=== PATIENT | male | born 1945 | race Caucasian/White ===

== ENCOUNTER 2018-09-22 14:20 | Inpatient (IN) | payer MEDICARE ==
[~2018-09-22] VITALS: Ht 177.8 cm; Wt 70.1 kg
--- NOTE | ~2018-09-22 | MORECARE ---
CASE MANAGEMENT DISCHARGE SUMMARY PATIENT: CHUCK TORREZ UNIT: [id number] ADM DATE: 09/22/18 AGE: 73 : 43 SEX: M ROOM/BED: D[facility] AUTHOR: DARRIUS,DOC PHYSICIAN: REFERRING PHYSICIAN: DEVON FRAZIER MD DATE OF SERVICE: 10/01/18 Discharge Plan Patient Name: CHUCK TORREZ Facility: [facility]:[place] : 1945 Planned Disposition: Home with Hospice Anticipated Discharge Date: 10/01/18 Discharge Date: 10/01/2018 Expected LOS: 9 Initial Reviewer: [email or web address] Initial Review Date: 09/28/2018 Generated: 10/01/18 4:50 pm Comments DCP- Discharge Planning Updated by [email or web address]: Adilene Terrell on 10/01/18 2:[address] HOSPICE CONSULT COMPLETED. PATIENT ACCEPTED TO [facility] INPATIENT UNIT AT [facility].CM SPOKE WITH MANUEL SABILLON, PRIMARY NURSE. NECESSARY PAPERWORK REPORTED HAS BEEN COMPLETED. AMBULANCE TRANSPORTATION HAS BEEN ARRANGED, DISCHARGED TODAY. DCP- Discharge Planning Updated by [email or web address]: Daniela Campbell on 09/30/18 8:[address] CM spoke with patient and sister Barbara Torres this am. CM spoke with about hospice care and [facility] was chosen as a hospice provider. CM gave Barbara information pamphlet on [facility]. CM called and spoke to Sandi at [facility] in [place] and faxed over records as requested. [facility] will come to speak to family later today. CM will continue to follow and assist as needed with discharge planning / needs. DCP- Discharge Planning Updated by [email or web address]: Daniela Campbell on 09/29/18 7:[address] LATE ENTRY 09/28/18 @ 1100 Patient Name: CHUCK TORREZ Admission Status: Elective Accout number: [id number] Admission Date: 09-22-2018 : 1945 Admission Diagnosis:UNSPECIFIED JAUNDICE Attending: DEVON FRAZIER Current LOS: 7 Anticipated DC Date: Planned Disposition: Home with Hospice Primary Insurance: MEDICARE A & B Discharge Planning Comments: CM met with patient at bedside after obtaining verbal consent. Patient states he plans on returning to his sister's home after discharge with hospice. Awaiting for biliary stent placement then will be going home. Awaiting on other family members to arrive before making final decision about hospice. CM will continue to follow and assist as needed for discharge planning / needs. Test Lead: Daniela Campbell DCPIA - Discharge Planning Initial Assessment Updated by [email or web address]: Daniela Campbell on 09/29/18 8:13 pm * Is the patient Alert and Oriented? Yes * How many steps to enter\exit or inside your home? * PCP FREDDIE * Pharmacy [facility] [address] * Preadmission Environment Home Alone * ADLs Independent * Equipment None * List name and contact numbers for known caregivers / representatives who currently or will assist patient after discharge: BARBARA TORRES - - [phone] * Verbal permission to speak to the caregivers and representatives has been obtained from the patient. Yes * Community resources currently utilized None * Additional services required to return to the preadmission environment? No * Can the patient safely return to the preadmission environment? Yes * Has this patient been hospitalized within the prior 30 days at any hospital? No Last DP export: 09/30/18 9:00 a Patient Name: CHUCK TORREZ Page 07213 at 1550 All edits/amendments must be made on the electronic document DICTATION DATE: 10/01/18 1549 AUDIO VISUAL DIRECTOR: HAYLEY 10/01/18 1549 RPT#: [id number] DC DATE:10/01/18 STATUS: DIS IN [facility] [address] [place] [address] END OF REPORT
--- NOTE | ~2018-09-22 | HEMODYNAMI ---
PATIENT:CHUCK TORREZ MEDICAL RECORD: [id number] : [birth year] LOCATION:[place] [address] ADMISSION DATE: 09/22/18 Generatedon:09/28/201815:55 Patient name: CHUCK TORREZ Patient #: [id number] SSN: DO B: 1945 Date of study: 09/28/2018 Page: Of Hemodynamic Procedure Report Patient Data Patient Demographics Procedure consent was obtained First Name: CHUCK Gender: Male Last Name: LORE : 1945 Middle Initial: J Age: 73 year(s) Patient #: [id number] Race: Unknown Additional ID: [id number] Contact details Address: [address] [place] [address] State: [place] City: [place] Zip code: [address] Admission Admission Data Admission Date: 09/22/2018 Admission Time: 14:24 Room #: [facility] Height (in.): 70 BSA: 1.92 (m2) Height (cm.): 177.8 BMI: 23.67 (kg/m2) Weight (lbs.): 165 Weight (kg.): 74.84 Procedure Procedure Types Cath Procedure Peripheral Cath Diagnostic Procedure [place] Peripheral Procedures Procedure Description Procedure Date Procedure Date: 09/28/2018 Procedure Start Time: 15:44 Procedure Staff Name Function Joe Jung MD Performing Physician Francie Anna RT Car Inspector Cesia Romo RN Nurse Elvia Griffith RN Nurse Alfonzo Langston RT Scrub Procedure Data Cath Procedure Fluoroscopy Diagnostic fluoroscopy Total fluoroscopy Time: 4.3 time: 4.3 min min Diagnostic fluoroscopy Total fluoroscopy dose: 110 dose: 110 mGy mGy Contrast Material Contrast Material Type Amount (ml) Isovue 300 30 Hemodynamics Rest BSA: 1.92 (m2) O2 Consumption: Estimated: 245.49 (ml/min) O2 Consumption indexed : Estimated:127.86 (ml/min/m) Heart Rate: 104 (bpm) Snapshots Pre Cath Intra NCS Post Cath Vital Signs Time Heart Resp SPO2 etCO2 NIBP (mmHg) Rhythm Pain Sedation Rate (ipm) (%) (mmHg) Status Level (bpm) 15:29:14 100 9 0 Measuring NSR 0 (11) 10(A) , No pain 15:30:32 151 12 79 0 Time NSR 0 (11) 10(A) Exceeded , No pain 15:35:31 101 10 80 0 Measuring NSR 0 (11) 10(A) , No pain 15:36:16 101 12 99 0 No Cuff NSR 0 (11) 10(A) , No pain 15:36:37 102 15 96 0 Aborted NSR 0 (11) 10(A) , No pain 15:38:27 99 11 95 0 140/83(120) NSR 0 (11) 10(A) , No pain 15:42:45 100 12 96 0 134/84(109) NSR 0 (11) 10(A) , No pain 15:47:01 100 10 96 0 149/88(115) NSR 0 (11) 10(A) , No pain 15:51:21 97 9 97 0 146/87(120) NSR 0 (11) 10(A) , No pain Procedure Log Time Note 15:04:05 Patient Weight : 165 lbs 15:04:05 Patient Height : 70 inches 15:04:22 Use device set IR Diagnostic 15:20:15 Tegaderm 4 x 4 (1626W) opened to sterile field. 15:20:16 Sterile Angiographic Pack opened to sterile field. 15:20:17 Bag Decanter (2002S) opened to sterile field. 15:21:46 Time tracking: Regular hours (M-F 7:00 - 5:00) 15:22:04 Plan of Care:Hemodynamics will remain stable., Cardiac rhythm will remain stable., Comfort level will be maintained., Respiratory function will remain adequate., Patient/ family verbilizes understanding of procedure., Procedure tolerated without complication., Recovers from procedure without complications.. 15:22:18 Patient received from CVICU to IR Alert and oriented. Tansferred to table in Supine position. 15:22:23 Signed procedure consent form obtained from patient. 15:22:29 H&P Date Dictated: 09/28/2018 Within 30 days and on chart.. 15:22:32 - 15::36 Family in patients room. 15::42 Patient NPO since Midnight. 15::25 ECG and BP/O2 sat monitors applied to patient. :: Vital chart was started :: Baseline sample Acquired. ::33 Full Disclosure recording started ::34 - 15::43 Patient diabetic? No. 15:27:44 ----Pre-sedation anethsthesia assessment.---- 15::48 Previous problem with sedation/anesthesia? No ? 15:27:51 Snore? Yes 15:27:53 Sleep apnea? Yes 15:28:00 Deviated septum? No 15:28:03 Opens mouth fully? Yes 15:28:18 Sticks out tongue? Yes 15:28:21 Airway obstruction? No ? 15:28:25 Dentures? No ? 15:28:35 IV patent on arrival in right IJ with D5/.45%NaCl at O. 15:28:46 Left chest area was prepped with chlora-prep and draped in sterile fashion 15:31:40 Baseline sample Acquired. 15:32:14 Physician arrived 15:33:01 --------ALL STOP TIME OUT------ 15:33:03 Final Timeout: patient, procedure, and site verified with staff and physician. All members of the team are in agreement. 15:34:37 Procedure started. 15:41:00 GLIDE WIRE ANGLE 180cm ([id number]) opened to sterile field. 15:41:07 GLIDE WIRE Angled Super Stiff 180cm ([id number]) opened to sterile field. 15:41:48 STOPCOCK 3-Way Large Bore ([id number]) opened to sterile field. 15:42:06 BAG, DRAINAGE EMPTY 600ML W/JENNIFFER (UFP415) opened to sterile field. 15:42:30 TORQUE DEVICE PLASTIC .038 ( TD01) opened to sterile field. 15:51:53 existing tube manipulated for better drainage 15:52:03 Procedure ended.(Physican Out) 15:52:22 Fluoroscopy time 04.30 minutes. 15:52:32 Flurop Dose total: 110 15:52:32 Fluoroscopy dose: 110 mGy 15:52:52 Contrast amount:Isovue 300 30ml. 15:52:54 Procedure and supply charges have been captured, reviewed, submitted an d are correct. 15:55:25 Report given to CVICU. 15:55:45 Vital chart was stopped Device Usage Item Name Manufacture Quantity Catalog Hospital Part Current Minimal Lot# / Number Charge Number Stock Stock Serial# Code GLIDE WIRE Terumo 1 [id number] 177844 [id number] 5 ANGLE 180cm ([id number]) GLIDE WIRE Terumo 1 [id number] 631567 159257 5 Angled Super Stiff 180cm (SX9384) [facility] Medical 1 [id number] 571574 4358 152661 5 [id number] 3-Way Large Bore (Q46225) BAG, Merit 1 [id number] 016284 689194 914341 5 DRAINAGE Medical EMPTY 600ML W/JENNIFFER (NCV989) TORQUE [place] 1 TD01 873989 115143 824728 5 DEVICE Scientific PLASTIC .038 ( TD01) Tegaderm 4 x 3M 1 1626W 180783 900959 118105 5 4 (1626W) Sterile Cardinal 1 [id number] 842286 940669 5 Angiographic Health Pack Bag Decanter Microtek 1 2001S 981979 54987 036305 5 (2001S) Medical Inc. Signature Audit [place] Stage Time Signature Unsigned Intra-Procedure 09/28/2018 Francie Anna 3:55:42 PM RT(R) [facility] [address] [place] [address]
--- NOTE | ~2018-09-22 | HEMODYNAMI ---
PATIENT:CHUCK TORREZ MEDICAL RECORD: [id number] : 43 LOCATION:[place] [address] ADMISSION DATE: 09/22/18 Generatedon:09/24/201815:04 Patient name: CHUCK TORREZ Patient #: [id number] SSN: DO B: 1945 Date of study: 09/24/2018 Page: Of Hemodynamic Procedure Report Patient Data Patient Demographics Procedure consent was obtained First Name: CHUCK Gender: Male Last Name: LORE : 1945 Middle Initial: J Age: 73 year(s) Patient #: [id number] Race: Unknown Additional ID: [id number] Contact details Address: [address] [place] [address] State: [place] City: [place] Zip code: [address] Admission Admission Data Admission Date: 09/22/2018 Admission Time: 14:24 Room #: [facility] Height (in.): 70 BSA: 1.92 (m2) Height (cm.): 177.8 BMI: 23.67 (kg/m2) Weight (lbs.): 165 Weight (kg.): 74.84 Procedure Procedure Types Cath Procedure Peripheral Cath Diagnostic Procedure Stock Broker Peripheral Procedures Procedure Description Procedure Date Procedure Date: 09/24/2018 Procedure Start Time: 14:14 Procedure Staff Name Function Cruz Winters MD Performing Physician Francie Anna RT Security Incident Response Specialist Cesia Romo RN Nurse Mercedes Graves Scrub Procedure Data Cath Procedure Fluoroscopy Diagnostic fluoroscopy Total fluoroscopy Time: 7.1 time: 7.1 min min Diagnostic fluoroscopy Total fluoroscopy dose: 143 dose: 143 mGy mGy Contrast Material Contrast Material Type Amount (ml) Isovue 300 15 Diagnostic catheters Device Type Used For End Catheter Placement Merit Impress KA 2 5Fr 40CM catheter ([id number]) Procedure Medications Medication Administration Route Dosage Heparin Flush Bag added to field 1 bags (1000units/500ml NS) Lidocaine 1% added to field 20 Versed I.V. 2 mg Fentanyl I.V. 100 mcg Fentanyl I.V. 100 mcg Hemodynamics Rest BSA: 1.92 (m2) O2 Consumption: Estimated: 228.82 (ml/min) O2 Consumption indexed : Estimated:119.18 (ml/min/m) Heart Rate: 81 (bpm) Snapshots Pre Cath Intra NCS Post Cath Vital Signs Time Heart Resp SPO2 etCO2 NIBP (mmHg) Rhythm Pain Sedation Rate (ipm) (%) (mmHg) Status Level (bpm) 14:03:26 98 15 0 173/79(125) NSR 0 (11) 10(A) , No pain 14:07:48 100 11 100 0 157/78(100) NSR 0 (11) 10(A) , No pain 14:12:05 91 15 100 0 152/70(92) NSR 0 (11) 10(A) , No pain 14:16:25 98 15 100 0 159/78(97) NSR 0 (11) 10(A) , No pain 14:20:45 95 23 0 138/68(81) NSR 0 (11) 10(A) , No pain 14:24:59 95 0 113/59(75) NSR 0 (11) 10(A) , No pain 14:29:09 93 16 98 0 121/61(82) NSR 0 (11) 10(A) , No pain 14:33:23 95 16 95 0 131/62(86) NSR 0 (11) 10(A) , No pain 14:37:39 90 15 99 0 130/66(86) NSR 0 (11) 10(A) , No pain 14:41:50 89 16 100 0 137/69(93) NSR 0 (11) 10(A) , No pain 14:46:08 90 16 100 0 149/67(91) NSR 0 (11) 10(A) , No pain 14:50:23 91 21 100 0 128/66(84) NSR 0 (11) 10(A) , No pain 14:54:34 91 55 100 0 128/68(85) NSR 0 (11) 10(A) , No pain 14:58:46 87 16 100 0 133/67(86) NSR 0 (11) 10(A) , No pain Medications Time Medication Route Dose Verified Delivered Reason Notes Effec tiveness by by 14:03:39 Heparin Flush added 1 Cruz Cruz used for Bag to bags Singh Winters procedure (1000units/500ml field MD TIM NS) 14:03:49 Lidocaine 1% added 20ml Cruz Arroyo used for to vial Singh Winters procedure field MD TIM 14:20:42 Fentanyl I.V. 100 Cruz [facility] Singh Romo RN sedation 14:24:41 Versed I.V. 2 mg Cruz Callaway for Singh Romo RN sedation 14:45:10 Fentanyl I.V. 100 Cruz [facility] Singh Romo RN sedation Procedure Log Time Note 13:30:55 Patient Weight : 165 lbs 13:31:22 Patient Height : 70 inches 13:40:37 KIT, INTRODUCER ACCUSTICK II W/C ([id number]) opened to sterile field. 13:40:38 CHIBA 20 X 15 needle opened to sterile field. 13:40:43 Use device set IR Diagnostic 13:40:47 Sterile Angiographic Pack opened to sterile field. 13:40:48 Bag Decanter (2002S) opened to sterile field. 13:41:37 - 13:50:53 Time tracking: Call back (After hours or weekends) 13:51:01 Plan of Care:Hemodynamics will remain stable., Cardiac rhythm will remain stable., Comfort level will be maintained., Respiratory function will remain adequate., Patient/ family verbilizes understanding of procedure., Procedure tolerated without complication., Recovers from procedure without complications.. 13:51:10 Patient received from CVICU to IR On ventilator. Tansferred to table in Supine position. 13:51:31 Signed procedure consent form obtained from guardian. 14:02:11 ECG and BP/O2 sat monitors applied to patient. 14:02:12 Vital chart was started 14:02:13 Baseline sample Acquired. 14:02:16 Full Disclosure recording started 14:02:22 Family in waiting room. 14:02:25 Patient NPO since Midnight. 14:03:39 Heparin Flush Bag (1000units/500ml NS) 1 bags added to field was administered by Cruz Winters MD; used for procedure; 14:03:49 Lidocaine 1% 20ml vial added to field was administered by Cruz villalta MD; used for procedure; 14:04:01 patient received on the ventilator, unable to obtain pre anesthesia answers. 14:12:06 Physician arrived 14:12:33 --------ALL STOP TIME OUT------ 14:12:34 Final Timeout: patient, procedure, and site verified with staff and physician. All members of the team are in agreement. 14:14:26 Procedure started. 14:14:32 Local anesthetic to Abdominal area with Lidocaine 1% by Cruz Winters MD.INITIAL ACCESS ONLY 14:20:42 Fentanyl 100 mcg I.V. was administered by Cesia Romo RN; for sedation; 14:24:41 Versed 2 mg I.V. was administered by Cesia Romo RN; for sedation; 14:26:31 NITINOL .018 80cm wire ([id number]) opened to sterile field. 14:37:15 PT ON VENT AND PROPOFOL GGT 14:42:27 ROADRUNNER .035 145 glide wire (S90905) opened to sterile field. 14:42:58 Marshall 180 wire (E01270) opened to sterile field. 14:43:01 A Merit Impress KA 2 5Fr 40CM catheter (00418TH6) was advanced over the wire and used for . 14:43:02 INFLATOR BasixTOUCH (DC3789) opened to sterile field. 14:43:03 SHEATH 6FR Brite Tip 35cm (753382V) opened to sterile field. 14:44:05 Inflate balloon Inflation number: 1 A Evercross 7 x 40 x 80 ([id number]) was prepped and advanced across the Undefined1, then inflated . 14:45:10 Fentanyl 100 mcg I.V. was administered by Cesia Romo RN; for sedation; 14:47:10 STOPCOCK 3-Way Large Bore (E77155) opened to sterile field. 14:47:11 BAG, DRAINAGE EMPTY 600ML W/JENNIFFER (BFD710) opened to sterile field. 14:47:12 Cook BILIARY 10.2 FR drainage catheter (N49041) opened to sterile field . 14:47:26 DILATOR, VESSEL 10/20 opened to sterile field. 14:55:39 A 10FR BILIARY DRAIN PLACED. 14:55:54 Procedure ended.(Physican Out) 14:56:31 Fluoroscopy time 07.10 minutes. 14:56:38 Fluoroscopy dose: 143 mGy 14:56:38 Flurop Dose total: 143 14:56:56 Contrast amount:Isovue 300 15ml. 14:56:59 Procedure and supply charges have been captured, reviewed, submitted an d are correct. 15:01:53 Report given to CVICU. 15:04:02 Vital chart was stopped Intervention Summary Intervention Notes Time ActionType Lesion and Equipment Used Action# Pressure Duration Attributes 14:44:05 Inflate Undefined1 Evercross 7 x 1 0 00:00 balloon 40 x 80 ([id number]) Device Usage Item Name Manufacture Quantity Catalog Hospital Part Current Minim al Lot# / Number Charge Number Stock Stock Serial# Code KIT, [place] 1 [id number] 075496 841357 713032 5 INTRODUCER My Luv My Life My Heartbeats ACCUSTICK II W/C ([id number]) CHIBA 20 X 15 Cook Medical 1 H21438 361213 285089 5 0439346 needle Sterile Cardinal 1 [id number] 282190 930204 5 Angiographic Health Pack Bag Decanter Microtek 1 2001S 824452 42794 451279 5 (2001S) Medical Inc. NITINOL .018 Medtronic 1 [id number] 670586 615630 5 80cm wire (Y762128) ROADRUNNER Cook Medical 1 K54471 188763 625580 731065 5 1232723 .035 145 glide wire (T66875) Marshall 180 wire Cook Medical 1 P46222 197306 927602 2307014 5 3169297 (C50964) Merit Impress Merit 1 [id number] 773923 758861 5 KA 2 5Fr 40CM Medical catheter (24710VK8) INFLATOR Merit 1 VP1067 830842 545177 115078 5 [employer]ix[employer]OT[employer] Inc. Medical (RV3111) SHEATH 6FR Cardinal 1 [id number] 362896 878928 278361 1 Brite Tip 35cm Health (983141V) Evercross 7 x Medtronic 1 [id number] 297741 73404 3694386 5 40 x 80 ([id number]) STOPCOCK 3-Way Cook Medical 1 R55108 764337 1797 147494 5 1176758 Large Bore (Y50291) BAG, DRAINAGE Merit 1 NAR344 853766 153733 144420 5 EMPTY 600ML Medical W/JENNIFFER (PYK182) Cook BILIARY [facility] 1 L35222 334684 835572 053566 5 8124386 10.2 FR drainage catheter (Q93784) DILATOR, [facility] 1 A43218 643635 84936 443044 5 VESSEL 09/17 Signature Audit [place] Stage Time Signature Unsigned Intra-Procedure 09/24/2018 Francie Anna 3:03:58 PM RT(R) [facility] [address] [place] [address]
--- NOTE | ~2018-09-22 | MORECARE ---
CASE MANAGEMENT DISCHARGE SUMMARY PATIENT: CHUCK TORREZ UNIT: [id number] ADM DATE: 09/22/18 AGE: 73 : 44 SEX: M [facility] AUTHOR: JOLLY RIZO PHYSICIAN: REFERRING PHYSICIAN: DEVON FRAZIER MD DATE OF SERVICE: 09/29/18 Discharge Plan Patient Name: CHUCK [facility]ORREZ [facility] [facility] 1945 Planned Disposition: Home with Hospice Anticipated Discharge Date: Discharge Date: Expected LOS: Initial Reviewer: [email or web address] Initial Review Date: 09/28/2018 Generated: 09/29/18 9:16 pm DCPIA - Discharge Planning Initial Assessment Updated by [email or web address]: Daniela Campbell on 09/29/18 8:13 pm * Is the patient Alert and Oriented? Yes * How many steps to enter\exit or inside your home? * PCP FREDDIE * Pharmacy [facility] [address] * Preadmission Environment Home Alone * ADLs Independent * Equipment None * List name and contact numbers for known caregivers / representatives who currently or will assist patient after discharge: BARBARA TORRES [facility] [phone] * Verbal permission to speak to the caregivers and representatives has been obtained from the patient. Yes * Community resources currently utilized None * Additional services required to return to the preadmission environment? No * Can the patient safely return to the preadmission environment? Yes * Has this patient been hospitalized within the prior 30 days at any hospital? No Patient Name: CHUCK TORREZ Page 66007 at 2016 All edits/amendments must be made on the electronic document DICTATION DATE: 09/29/182015 RESOURCE ENGINEER: HAYLEY 09/29/182015 RPT#: [id number] DC DATE: STATUS: ADM IN [facility] [address] [place] [address] END OF REPORT
--- NOTE | ~2018-09-22 | MORECARE ---
CASE MANAGEMENT DISCHARGE SUMMARY PATIENT: CHUCK TORREZ UNIT: [id number] ADM DATE: 09/22/18 AGE: 73 : 44 SEX: M ROOM/BED: D[facility] AUTHOR: DARRIUS,DOC PHYSICIAN: REFERRING PHYSICIAN: DEVON FRAZIER MD DATE OF SERVICE: 09/29/18 Discharge Plan Patient Name: CHUCK TORREZ Facility: [facility]:[place] : 1945 Planned Disposition: Home with Hospice Anticipated Discharge Date: Discharge Date: Expected LOS: Initial Reviewer: [email or web address] Initial Review Date: 09/28/2018 Generated: 09/29/18 9:23 pm Comments DCP- Discharge Planning Updated by [email or web address]: Daniela Campbell on 09/29/18 7:[address] LATE ENTRY 09/28/18 @ 1100 Patient Name: CHUCK TORREZ Admission Status: Elective Accout number: [id number] Admission Date: 09-22-2018 : 1945 Admission Diagnosis:UNSPECIFIED JAUNDICE Attending: DEVON FRAZIER Current LOS: 7 Anticipated DC Date: Planned Disposition: Home with Hospice Primary Insurance: MEDICARE A & B Discharge Planning Comments: CM met with patient at bedside after obtaining verbal consent. Patient states he plans on returning to his sister's home after discharge with hospice. Awaiting for biliary stent placement then will be going home. Awaiting on other family members to arrive before making final decision about hospice. CM will continue to follow and assist as needed for discharge planning / needs. Geotechnician: Daniela Campbell DCPIA - Discharge Planning Initial Assessment Updated by [email or web address]: Daniela Campbell on 09/29/18 8:13 pm * Is the patient Alert and Oriented? Yes * How many steps to enter\exit or inside your home? * PCP FREDDIE * Pharmacy [facility] [address] * Preadmission Environment Home Alone * ADLs Independent * Equipment None * List name and contact numbers for known caregivers / representatives who currently or will assist patient after discharge: BARBARA TORRES [facility] [phone] * Verbal permission to speak to the caregivers and representatives has been obtained from the patient. Yes * Community resources currently utilized None * Additional services required to return to the preadmission environment? No * Can the patient safely return to the preadmission environment? Yes * Has this patient been hospitalized within the prior 30 days at any hospital? No Last DP export: 09/29/18 7:16 p Patient Name: CHUCK TORREZ Page 38530 at 2022 All edits/amendments must be made on the electronic document DICTATION DATE: 09/29/182022 ETHNOGRAPHER: HAYLEY 09/29/182022 RPT#: [id number] DC DATE: STATUS: ADM IN [facility] [address] [place] [address] END OF REPORT
--- NOTE | ~2018-09-22 | MORECARE ---
CASE MANAGEMENT DISCHARGE SUMMARY PATIENT: CHUCK TORREZ UNIT: [id number] ADM DATE: 09/22/18 AGE: 73 : 44 SEX: M ROOM/BED: D[facility] AUTHOR: DARRIUS,DOC PHYSICIAN: REFERRING PHYSICIAN: DEVON FRAZIER MD DATE OF SERVICE: 10/04/18 Discharge Plan Patient Name: CHUCK TORREZ Facility: [facility]:[place] : 1945 Planned Disposition: Home with Hospice Anticipated Discharge Date: 10/01/18 Discharge Date: 10/01/2018 Expected LOS: 9 Initial Reviewer: [email or web address] Initial Review Date: 09/28/2018 Generated: 10/04/18 6:20 pm Comments DCP- Discharge Planning Updated by [email or web address]: Adilene Terrell on 10/01/18 3:[address] HOSPICE CONSULT COMPLETED. PATIENT ACCEPTED TO [facility] INPATIENT UNIT AT [facility].CM SPOKE WITH MANUEL SABILLON, PRIMARY NURSE. NECESSARY PAPERWORK REPORTED HAS BEEN COMPLETED. AMBULANCE TRANSPORTATION HAS BEEN ARRANGED, DISCHARGED TODAY. DCP- Discharge Planning Updated by [email or web address]: Daniela Campbell on 09/30/18 9:[address] CM spoke with patient and sister Barbara Torres this am. CM spoke with about hospice care and [facility] was chosen as a hospice provider. CM gave Barbara information pamphlet on [facility]. CM called and spoke to Sandi at [facility] in [place] and faxed over records as requested. [facility] will come to speak to family later today. CM will continue to follow and assist as needed with discharge planning / needs. DCP- Discharge Planning Updated by [email or web address]: Daniela Campbell on 09/29/18 8:[address] LATE ENTRY 09/28/18 @ 1100 Patient Name: CHUCK TORREZ Admission Status: Elective Accout number: [id number] Admission Date: 09-22-2018 : 1945 Admission Diagnosis:UNSPECIFIED JAUNDICE Attending: DEVON FRAZIER Current LOS: 7 Anticipated DC Date: Planned Disposition: Home with Hospice Primary Insurance: MEDICARE A & B Discharge Planning Comments: CM met with patient at bedside after obtaining verbal consent. Patient states he plans on returning to his sister's home after discharge with hospice. Awaiting for biliary stent placement then will be going home. Awaiting on other family members to arrive before making final decision about hospice. CM will continue to follow and assist as needed for discharge planning / needs. Kitchen And Bath Designer: Daniela Campbell DCPIA - Discharge Planning Initial Assessment Updated by [email or web address]: Daniela Campbell on 09/29/18 8:13 pm * Is the patient Alert and Oriented? Yes * How many steps to enter\exit or inside your home? * PCP FREDDIE * Pharmacy [facility] [address] * Preadmission Environment Home Alone * ADLs Independent * Equipment None * List name and contact numbers for known caregivers / representatives who currently or will assist patient after discharge: BARBARA TORRES - - [phone] * Verbal permission to speak to the caregivers and representatives has been obtained from the patient. Yes * Community resources currently utilized None * Additional services required to return to the preadmission environment? No * Can the patient safely return to the preadmission environment? Yes * Has this patient been hospitalized within the prior 30 days at any hospital? No Last DP export: 10/01/18 3:50 p Patient Name: CHUCK TORREZ Page [id number] at 1720 All edits/amendments must be made on the electronic document DICTATION DATE: 10/04/181719 HONEYCOMB BLANKET MAKER: HAYLEY 10/04/18 172 RPT#: [id number] DC DATE:10/01/18 STATUS: DIS IN [facility] [address] [place] [address] END OF REPORT
--- NOTE | ~2018-09-22 | MORECARE ---
CASE MANAGEMENT DISCHARGE SUMMARY PATIENT: CHUCK TORREZ UNIT: [id number] ADM DATE: 09/22/18 AGE: 73 : 44 SEX: M ROOM/BED: D[facility] AUTHOR: DARRIUS,DOC PHYSICIAN: REFERRING PHYSICIAN: DEVON FRAZIER MD DATE OF SERVICE: 09/30/18 Discharge Plan Patient Name: CHUCK TORREZ Facility: [facility]:[place] : 1945 Planned Disposition: Home with Hospice Anticipated Discharge Date: Discharge Date: Expected LOS: Initial Reviewer: [email or web address] Initial Review Date: 09/28/2018 Generated: 09/30/18 11:00 am Comments DCP- Discharge Planning Updated by [email or web address]: Daniela Campbell on 09/30/18 8:[address] CM spoke with patient and sister Barbara Torres this am. CM spoke with about hospice care and [facility] was chosen as a hospice provider. CM gave Barbara information pamphlet on [facility]. CM called and spoke to Sandi at [facility] in [place] and faxed over records as requested. [facility] will come to speak to family later today. CM will continue to follow and assist as needed with discharge planning / needs. DCP- Discharge Planning Updated by [email or web address]: Daniela Campbell on 09/29/18 7:[address] LATE ENTRY 09/28/18 @ 1100 Patient Name: CHUCK TORREZ Admission Status: Elective Accout number: [id number] Admission Date: 09-22-2018 : 1945 Admission Diagnosis:UNSPECIFIED JAUNDICE Attending: DEVON FRAZIER Current LOS: 7 Anticipated DC Date: Planned Disposition: Home with Hospice Primary Insurance: MEDICARE A & B Discharge Planning Comments: CM met with patient at bedside after obtaining verbal consent. Patient states he plans on returning to his sister's home after discharge with hospice. Awaiting for biliary stent placement then will be going home. Awaiting on other family members to arrive before making final decision about hospice. CM will continue to follow and assist as needed for discharge planning / needs. Top Bottom Attaching Machine Operator: Daniela Campbell DCPIA - Discharge Planning Initial Assessment Updated by [email or web address]: Daniela Campbell on 09/29/18 8:13 pm * Is the patient Alert and Oriented? Yes * How many steps to enter\exit or inside your home? * PCP FREDDIE * Pharmacy [facility] [address] * Preadmission Environment Home Alone * ADLs Independent * Equipment None * List name and contact numbers for known caregivers / representatives who currently or will assist patient after discharge: BARBARA TORRES [facility] [phone] * Verbal permission to speak to the caregivers and representatives has been obtained from the patient. Yes * Community resources currently utilized None * Additional services required to return to the preadmission environment? No * Can the patient safely return to the preadmission environment? Yes * Has this patient been hospitalized within the prior 30 days at any hospital? No Last DP export: 09/30/18 8:33 a Patient Name: CHUCK TORREZ Page [id number] at 1000 All edits/amendments must be made on the electronic document DICTATION DATE: 09/30/18 1000 DESIGN CENTER CONSULTANT: HAYLEY 09/30/18 1000 RPT#: [id number] DC DATE: STATUS: ADM IN [facility] [address] [place] [address] END OF REPORT
--- NOTE | ~2018-09-22 | HEMODYNAMI ---
PATIENT:CHUCK TORREZ MEDICAL RECORD: [id number] : 43 LOCATION:[place] [address] ADMISSION DATE: 09/22/18 Generatedon:09/30/201815:27 Patient name: CHUCK TORREZ Patient #: [id number] SSN: DO B: 1945 Date of study: 09/30/2018 Page: Of Hemodynamic Procedure Report Patient Data Patient Demographics Procedure consent was obtained First Name: CHUCK Gender: Male Last Name: LORE : 1945 Middle Initial: J Age: 73 year(s) Patient #: [id number] Race: Unknown Additional ID: [id number] Contact details Address: [address] [place] [address] State: [place] City: [place] Zip code: [address] Admission Admission Data Admission Date: 09/22/2018 Admission Time: 14:24 Room #: [facility] Height (in.): 70 BSA: 1.89 (m2) Height (cm.): 177.8 BMI: 22.81 (kg/m2) Weight (lbs.): 159 Weight (kg.): 72.12 Procedure Procedure Types Cath Procedure Peripheral Cath Diagnostic Procedure Oil Heaterman Peripheral Procedures Biliary Biliary Stent Placement Procedure Description Procedure Date Procedure Date: 09/30/2018 Procedure Start Time: 14:30 Procedure Staff Name Function Cruz Winters MD Performing Physician Francie Anna RT Profiling Machine Set Up Operator Tool Irene Hoffman CRNA Additional personnel Elvia Griffith RN Nurse Cesia Romo RN Nurse Alfonzo Langston RT Scrub Procedure Data Cath Procedure Fluoroscopy Diagnostic fluoroscopy Total fluoroscopy Time: time: 13.5 min 13.5 min Diagnostic fluoroscopy Total fluoroscopy dose: 411 dose: 411 mGy mGy Contrast Material Contrast Material Type Amount (ml) Isovue 300 75 Diagnostic catheters Device Type Used For End Catheter Placement [facility] Pigtail VESSEL SIZING 5Fr 65CM catheter ([id number]) Procedure Medications Medication Administration Route Dosage Oxygen etCO2 Nasal cannula 8 l/min Lidocaine 1% added to field 20 Heparin Flush Bag added to field 1 bags (1000units/500ml NS) Hemodynamics Rest BSA: 1.89 (m2) O2 Consumption: Estimated: 236.38 (ml/min) O2 Consumption indexed : Estimated:125.07 (ml/min/m) Heart Rate: 96 (bpm) Snapshots Pre Cath Intra NCS Post Cath Vital Signs Time Heart Resp SPO2 etCO2 NIBP (mmHg) Rhythm Pain Sedation Rate (ipm) (%) (mmHg) Status Level (bpm) 14:22:47 101 15 82 19.4 154/62(95) ST 0 (11) 10(A) , No pain 14:27:20 106 20 97 11.9 166/73(132) ST 0 (11) 10(A) , No pain 14:31:54 105 21 97 0 163/63(105) ST 0 (11) 8(A) , No pain 14:36:18 103 17 97 1.4 123/57(85) ST 0 (11) 8(A) , No pain 14:40:38 106 12 97 0 127/55(91) ST 0 (11) 8(A) , No pain 14:45:01 105 12 97 0.7 122/56(82) ST 0 (11) 8(A) , No pain 14:49:15 104 12 97 17.9 111/60(86) ST 0 (11) 8(A) , No pain 14:53:31 103 12 97 17.2 113/55(84) ST 0 (11) 8(A) , No pain 14:57:49 104 11 97 10.4 117/52(75) ST 0 (11) 8(A) , No pain 15:02:03 105 16 97 0 104/52(80) ST 0 (11) 8(A) , No pain 15:06:19 103 12 97 8.2 108/50(72) ST 0 (11) 8(A) , No pain 15:10:41 105 11 97 0 103/49(69) ST 0 (11) 8(A) , No pain 15:14:55 102 11 97 8.2 97/48(74) ST 0 (11) 8(A) , No pain 15:19:09 102 11 97 13.4 100/50(76) ST 0 (11) 8(A) , No pain 15:23:25 102 11 97 17.2 109/48(68) ST 0 (11) 8(A) , No pain 15:25:54 104 11 96 0 104/51(70) ST 0 (11) 8(A) , No pain Medications Time Medication Route Dose Verified Delivered Reason Notes Effe ctiveness by by 14:34:09 Oxygen etCO2 8 Cruz Elvia Per Nasal l/min Singh Griffith RN protocol cannula 14:35:17 Lidocaine 1% added 20ml Cruz Arroyo used for to vial Singh Winters procedure field MD TIM 14:35:58 Heparin Flush added 1 Cruz Arroyo used for Bag to bags Singh Winters procedure (1000units/500ml field MD TIM NS) Procedure Log Time Note 13:54:22 Patient Height : 70 inches 13:54:22 Patient Weight : 159 lbs 14:08:56 Time tracking: Regular hours (M-F 7:00 - 5:00) 14:20:02 Plan of Care:Hemodynamics will remain stable., Cardiac rhythm will remain stable., Comfort level will be maintained., Respiratory function will remain adequate., Patient/ family verbilizes understanding of procedure., Procedure tolerated without complication., Recovers from procedure without complications.. 14:20:09 Patient received from CVICU to IR Alert and oriented. Tansferred to table in Supine position. 14:20:10 Correct patient and procedure confirmed by team. 14:20:12 Signed procedure consent form obtained from patient. 14:20:15 ECG and BP/O2 sat monitors applied to patient. 14:20:20 Baseline sample Acquired. 14:20:23 Full Disclosure recording started 14:20:25 - 14:20:30 H&P Date Dictated: 09/30/2018 Within 30 days and on chart.. 14:20:31 Pre-procedure instructions explained to patient. 14:20:32 Pre-op teaching completed and patient verbalized understanding. 14:20:35 Family unavailable. 14:20:37 Patient NPO since Midnight. 14:20:42 Is the patient allergic to Iodine/contrast media? No. 14::19 Vital chart was started 14::24 Baseline sample Acquired. 14:: Baseline sample Acquired. 14:23:10 Patient diabetic? No. 14::22 ----Pre-sedation anethsthesia assessment.---- 14:23:25 Snore? Yes 14:23:27 Sleep apnea? Yes 14:26:07 see anesthesia notes for monitoring of patient during procedure 14:26:16 - 14::31 Baseline sample Acquired. 14::44 Baseline sample Acquired. 14:27:00 Baseline sample Acquired. 14:: Baseline sample Acquired. 14:29:40 Hansen 180 wire ([id number]) opened to sterile field. 14:29:51 Physician arrived 14:29:52 --------ALL STOP TIME OUT------ 14:29:53 Final Timeout: patient, procedure, and site verified with staff and physician. All members of the team are in agreement. 14:30:14 Procedure started. 14:30:21 Local anesthetic to Abdominal area with Lidocaine 1% by Cruz Winters MD.INITIAL ACCESS ONLY 14:34:09 Oxygen 8 l/min etCO2 Nasal cannula was administered by Elvia Griffith RN; Per protocol; 14:35:01 ROADRUNNER FIRM 260CM glide wire ([id number]) opened to sterile field. 14:35:17 Lidocaine 1% 20ml vial added to field was administered by Cruz villalta MD; used for procedure; 14:35:58 Heparin Flush Bag (1000units/500ml NS) 1 bags added to field was administered by Cruz Winters MD; used for procedure; 14:36:51 ARROW SUPERFLEX 8FR 45CM sheath opened to sterile field. 14:44:05 HANSEN 260 wire ([id number]) opened to sterile field. 14:44:13 INFLATOR BasixTOUCH (SD0163) opened to sterile field. 14:44:49 Place stent Inflation Number: 1 A Visipro 7 x 17 x 135 Stent ([id number]) was prepped and advanced across the Undefined1. The stent was deployed at 0 LUCIE for 0:00 (min:sec). 14:50:44 PATIENT EKG LEAD NOT MAKING GOOD CONTACT UNABLE TO REACH DU PROCEDURE BUT PATIENT ON ICU MONITOR WELL WITH RHYTHM CLEAR 14:51:08 [facility] [place] 10FR 23CM sheath opened to sterile field. 14:51:24 A [facility] Pigtail VESSEL SIZING 5Fr 65CM catheter ([id number]) was advanced over the wire and used for . 14:56:12 Baseline sample Acquired. 14:56:18 Baseline sample Acquired. 14:56:27 Baseline sample Acquired. 14:59:05 SNARE, GOOSENECK SNARE 10MM opened to sterile field. 15:12:37 VIABIL 10 X 8 stent ([id number]) was deployed across Undefined1 . 15:17:54 Cook BILIARY 10.2 FR drainage catheter ([id number]) opened to sterile field . 15:17:[address] STOP[address] 3-Way Large Bore ([id number]) opened to sterile field. 15:17:56 BAG, DRAINAGE EMPTY 600ML W/JENNIFFER (BEA323) opened to sterile field. 15:19:11 Inflate balloon Inflation number: 2 A Evercross 10 x 40 x 135 Balloon ([id number]) was prepped and advanced across the Undefined1, then inflated. 15:22:22 10FR BILIARY DRAIN REPLACED. 15:22:47 Procedure ended.(Physican Out) 15:23:10 Fluoroscopy time 13.50 minutes. 15:23:16 Fluoroscopy dose: 411 mGy 15:23:16 Flurop Dose total: 411 15:23:39 Contrast amount:Isovue 300 75ml. 15:23:43 Procedure and supply charges have been captured, reviewed, submitted an d are correct. 15:24:43 Report given to CVICU. 15:27:52 Vital chart was stopped Intervention Summary Intervention Notes Time ActionType Lesion and Equipment Used Action# Pressure Duration Attributes 14:44:[address] stent Undefined1 Visipro 7 x 17 x 1 0 00:00 135 Stent ([id number]) 15:12:37 Deploy self Undefined1 VIABIL 10 X 6 1 expanding stent ([id number]) stent 15:19:11 Inflate Undefined1 Evercross 10 x 40 2 0 00:00 balloon x 135 Balloon ([id number]) Device Usage Item Name Manufacture Quantity Catalog Number [facility] Lot# / Charge Number Stock Stock Serial# Code Hansen 180 wire Cook Medical 1 [id number] [id number] [id number] 80 5 [id number] ([id number]) ROADRUNNER FIRM Cook Medical 1 Q72359 764690 38633 2 5 [id number] 260CM glide wire (E02951) ARROW SUPERFLEX Teleflex 1 [id number]-[id number] 322506 02104 5 5 8FR 45CM sheath HANSEN 260 wire Cook [employer] 1 I48107 309949 52741 56059 8 5 [id number] ([id number]) INFLATOR Merit 1 II9074 263920 230813 34574 5 5 [facility] ([id number]) Visipro 7 x 17 x Medtronic 1 [id number] 132264 985918 69602 5 [id number] 135 Stent ([id number]) [facility] [place] 10FR 23CM [facility] [place] 1 325581 062908 01147 9 5 sheath Merit UHF Pigtail Merit 1 [id number] 571035 23031 3 5 VESSEL SIZING 5Fr Medical 65CM catheter ([id number]) SNARE, GOOSENECK Medtronic 1 YV3986 812490 48810 67399 8 5 SNARE 10MM VIABIL 10 X 6 [place] 1 [id number] 073874 09199 3 5 [id number] stent ([id number]) Cook BILIARY 10.2 Cook Medical 1 F46810 767945 908043 13504 2 5 [id number] FR drainage catheter ([id number]) STOPCOCK 3-Way Cook Medical 1 B35097 624857 1473 11285 7 5 [id number] Large Bore ([id number]) BAG, DRAINAGE Merit 1 [id number] 731211 032284 77882 9 5 EMPTY 600ML Medical W/JENNIFFER (JCP295) Evercross 10 x 40 Medtronic 1 [id number] 455952 646469 44430 1 5 [id number] x 135 Balloon ([id number]) Signature Audit [place] Stage Time Signature Unsigned Intra-Procedure 09/30/2018 Francie Anna 3:27:49 PM RT(R) [facility] [address] [place] [address]
--- NOTE | ~2018-09-22 | MORECARE ---
CASE MANAGEMENT DISCHARGE SUMMARY PATIENT: CHUCK TORREZ UNIT: [id number] ADM DATE: 09/22/18 AGE: 73 : 44 SEX: M ROOM/BED: D[facility] AUTHOR: DARRIUS,DOC PHYSICIAN: REFERRING PHYSICIAN: DEVON FRAZIER MD DATE OF SERVICE: 09/30/18 Discharge Plan Patient Name: CHUCK TORREZ Facility: [facility]:[place] : 1945 Planned Disposition: Home with Hospice Anticipated Discharge Date: Discharge Date: Expected LOS: Initial Reviewer: [email or web address] Initial Review Date: 09/28/2018 Generated: 09/30/18 10:33 am Comments DCP- Discharge Planning Updated by [email or web address]: Daniela Campbell on 09/29/18 7:[address] LATE ENTRY 09/28/18 @ 1100 Patient Name: CHUCK TORREZ Admission Status: Elective Accout number: [id number] Admission Date: 09-22-2018 : 1945 Admission Diagnosis:UNSPECIFIED JAUNDICE Attending: DEVON FRAZIER Current LOS: 7 Anticipated DC Date: Planned Disposition: Home with Hospice Primary Insurance: MEDICARE A & B Discharge Planning Comments: CM met with patient at bedside after obtaining verbal consent. Patient states he plans on returning to his sister's home after discharge with hospice. Awaiting for biliary stent placement then will be going home. Awaiting on other family members to arrive before making final decision about hospice. CM will continue to follow and assist as needed for discharge planning / needs. Kettle Worker: Daniela Campbell DCPIA - Discharge Planning Initial Assessment Updated by [email or web address]: Daniela Campbell on 09/29/18 8:13 pm * Is the patient Alert and Oriented? Yes * How many steps to enter\exit or inside your home? * PCP FREDDIE * Pharmacy [facility] [address] * Preadmission Environment Home Alone * ADLs Independent * Equipment None * List name and contact numbers for known caregivers / representatives who currently or will assist patient after discharge: BARBARA TORRES [facility] [phone] * Verbal permission to speak to the caregivers and representatives has been obtained from the patient. Yes * Community resources currently utilized None * Additional services required to return to the preadmission environment? No * Can the patient safely return to the preadmission environment? Yes * Has this patient been hospitalized within the prior 30 days at any hospital? No External Providers External Provider: [facility] *(provides inpt [facility] Next Contact Date: Service Request Date: Service Type: Resolution: Reviewer: Comments: Last DP export: 09/29/18 7:23 p Patient Name: HCUCK TORREZ Page 66852 at 0933 All edits/amendments must be made on the electronic document DICTATION DATE: 09/30/18931 CREATIVE SERVICES INTERN: HAYLEY 09/30/18931 RPT#: [id number] DC DATE: STATUS: ADM IN [facility] [address] [place] [address] END OF REPORT
--- NOTE | ~2018-09-22 | OP ---
PATIENT NAME: CHUCK TORREZ MEDICAL RECORD: [id number] :[birth year] LOCATION:D[facility] ADMISSION DATE:09/22/18 SURGEON: REHAN CHRISTENSEN MD DATE OF OPERATION: 09/24/2018 PREOPERATIVE DIAGNOSES: 1. Acute renal failure. 2. Acute respiratory failure. 3. Liver failure. 4. Obstructive jaundice. 5. Metastatic cancer with liver mets. POSTOPERATIVE DIAGNOSES: 1. Acute renal failure. 2. Acute respiratory failure. 3. Liver failure. 4. Obstructive jaundice. 5. Metastatic cancer with liver mets. PROCEDURE: Right IJ 12.5 cm Trialysis catheter placement. SURGEON: Rehan Christensen MD REPORT OF PROCEDURE: The patient's right neck was prepped and draped in sterile fashion. A needle was used to cannulate the right internal jugular vein under ultrasound guidance. A wire was then advanced with ease. Over this wire, a dilator was placed followed by the Trialysis catheter. The catheter aspirated nonpulsatile dark blood and flushed easily in all 3 ports. This was sutured into place with 4-0 nylons and dressed appropriately. COMPLICATIONS: None. CONDITION: Stable. ANESTHESIA: General endotracheal. BLOOD LOSS: Minimal. Procedure done in the ICU at the bedside. TRANSINT:[id number] Voice Confirmation ID: [id number] DOCUMENT ID: [id number] REHAN CHRISTENSEN MD at 0916 CC: [id number] DICTATION DATE: 09/24/182043 CALLISTHENICS INSTRUCTOR: 09/24/182052 ADM IN [place] [address] [place] [address]
[~2018-09-22 14:20] MED LIST: BAYER CHEWABLE81 MG PO; FISH OIL 1,0001 CA1 PO; MULTIPLE VITAMI1 TA1 PO
[2018-09-22] MEDS ORDERED: CENTRUM SILVER1 EACH PO (15:47)
[2018-09-22 16:20] LABS: BASOPHILS 0 % (0-2); EOSINOPHILS 0 % (0-7); HEMOGLOBIN 15.3 g/dL (13.5-17.5); IMMATURE GRANULOCYTES 0.2 % (0-5); LYMPHOCYTES 6.3 % (15-50); MCH 30.2 pg (26.0-34.0); MCHC 34.8 g/dL (31.0-37.0); MEAN PLATELET VOLUME 9.5 fL (7.4-10.4); MONOCYTES 10.6 % (2-11); NEUTROPHILS 82.9 % (40-80); RBC 5.06 10x6/uL (4.20-6.10); RDW 15.1 % (11.5-14.5); WBC 13.1 10x3/uL (4.8-10.8)
[2018-09-22 16:24] LABS: PLATELET COUNT 423 10x3/uL (130-400)
[2018-09-22 16:28] LABS: INR 1.32 (0.85-1.17); PROTIME 15.9 SECONDS (11.6-15.0)
[2018-09-22 16:36] LABS: ALBUMIN 3.8 g/dL (3.4-5.0); ANION GAP 16.5 mmol/L (8-16); BILIRUBIN - TOTAL 12.78 mg/dL (0.2-1.3); CALCIUM 10.6 mg/dL (8.5-10.1); CARBON DIOXIDE 36.1 mmol/L (21.0-32.0); CREATININE - SERUM 3.8 mg/dL (0.6-1.3); PROTEIN - SERUM 8.1 g/dL (6.4-8.2)
[2018-09-22 16:41] LABS: POTASSIUM - SERUM 2.6 mmol/L (3.5-5.1)
[2018-09-22 19:18] VITALS: BMI 23.7
[2018-09-22 20:00] VITALS: BP 115/68
[2018-09-23 04:00] VITALS: BP 100/54
[2018-09-23 04:53] LABS: BASOPHILS 0 % (0-2); EOSINOPHILS 0.1 % (0-7); HEMATOCRIT 38.3 % (42.0-54.0); IMMATURE GRANULOCYTES 0.5 % (0-5); LYMPHOCYTES 13.6 % (15-50); MCH 29.5 pg (26.0-34.0); MCHC 33.9 g/dL (31.0-37.0); MCV 86.8 fL (80.0-100.0); MONOCYTES 9.1 % (2-11); NEUTROPHILS 76.7 % (40-80); PLATELET COUNT 433 10x3/uL (130-400); RBC 4.41 10x6/uL (4.20-6.10); RDW 15.7 % (11.5-14.5); WBC 20.3 10x3/uL (4.8-10.8)
[2018-09-23 05:03] LABS: BILIRUBIN - TOTAL 11.7 mg/dL (0.2-1.3); CALCIUM 9.4 mg/dL (8.5-10.1); CREATININE - SERUM 4.6 mg/dL (0.6-1.3); PROTEIN - SERUM 6.8 g/dL (6.4-8.2)
[2018-09-23 05:07] LABS: CARBON DIOXIDE 23.8 mmol/L (21.0-32.0); POTASSIUM - SERUM 2.8 mmol/L (3.5-5.1)
[2018-09-23 07:55] VITALS: BP 128/71
[2018-09-23 11:54] VITALS: BP 114/61
[2018-09-23 13:45] VITALS: BMI 23.6
[2018-09-23 13:50] LABS: APPEARANCE CLOUDY (CLEAR); COLOR DK YELLOW (YELLOW); SPECIFIC GRAVITY 1.015 (1.005-1.020)
[2018-09-23 13:51] LABS: BACTERIA FEW /hpf (NONE SEEN); BILIRUBIN NEGATIVE (NEGATIVE); EPITHELIAL CELLS NSEEN /hpf (0-5); GLUCOSE NEGATIVE (NEGATIVE); KETONE NEGATIVE (NEGATIVE); NITRITE NEGATIVE (NEGATIVE); PROTEIN 2+ mg/dL (NEGATIVE); RED CELLS - URINE 25-50 /hpf (0-5); UROBILINOGEN NORMAL (NORMAL); WHITE CELLS - URINE RARE /hpf (0-5)
[2018-09-23 14:18] LABS: CREATININE - URINE 202.7 mg/dL (30-125); PROTEIN - URINE 128.5 mg/dL (0.0-11.9)
[2018-09-23 14:21] VITALS: Ht 177.8 cm; Wt 70.1 kg
[2018-09-23 15:56] LABS: CREATININE - URINE 203.2 mg/dL (30-125); PRO/CRE RATIO URINE 0.6 mg/g
[2018-09-23 16:18] LABS: ANION GAP 18.1 mmol/L (8-16); CALCIUM 8.9 mg/dL (8.5-10.1); CARBON DIOXIDE 28.6 mmol/L (21.0-32.0); CREATININE - SERUM 5.1 mg/dL (0.6-1.3); POTASSIUM - SERUM 3.7 mmol/L (3.5-5.1)
[2018-09-23 17:09] LABS: ERYTHROCYTE SEDIMENTATION RATE 47 mm/hr (0-20)
[2018-09-23 17:35] VITALS: BP 120/62
[2018-09-23 20:23] VITALS: BP 118/51
[2018-09-24] VITALS (10 sets, daily range): BP systolic 81–128; BP diastolic 39–69
[2018-09-24 04:58] LABS: BASOPHILS 0.1 % (0-2); EOSINOPHILS 0 % (0-7); HEMOGLOBIN 10.7 g/dL (13.5-17.5); IMMATURE GRANULOCYTES 0.3 % (0-5); LYMPHOCYTES 6.8 % (15-50); MCHC 35.3 g/dL (31.0-37.0); MEAN PLATELET VOLUME 10.1 fL (7.4-10.4); MONOCYTES 10.4 % (2-11); NEUTROPHILS 82.4 % (40-80); RBC 3.69 10x6/uL (4.20-6.10)
[2018-09-24 05:04] LABS: HEMATOCRIT 30.3 % (42.0-54.0); MCV 82.1 fL (80.0-100.0); PLATELET COUNT 313 10x3/uL (130-400); WBC 14.4 10x3/uL (4.8-10.8)
[2018-09-24 05:11] LABS: INR 1.79 (0.85-1.17); PROTIME 20.2 SECONDS (11.6-15.0)
[2018-09-24 05:47] LABS: ALBUMIN 2.4 g/dL (3.4-5.0); ALKALINE PHOSPHATASE 654 U/L (46-116); BILIRUBIN - TOTAL 10.42 mg/dL (0.2-1.3); CALC OSMOLALITY 301 mosm/kg (275-300); CALCIUM 8.2 mg/dL (8.5-10.1); CARBON DIOXIDE 28.8 mmol/L (21.0-32.0); CHLORIDE - SERUM 94 mmol/L (98-107); CKMB 3.8 U/L (0.0-3.6); CREATININE - SERUM 5.3 mg/dL (0.6-1.3); GLUCOSE 137 mg/dL (74-106); MAGNESIUM - SERUM 1.9 mg/dL (1.8-2.4); POTASSIUM - SERUM 3.7 mmol/L (3.5-5.1); PRE-ALBUMIN 14.4 mg/dL (18.0-35.7); PROTEIN - SERUM 5.1 g/dL (6.4-8.2); SODIUM 134 mmol/L (136-145); UREA NITROGEN 103 mg/dL (7-18); URIC ACID 11.5 mg/dL (2.6-7.2); eGFR NON AFRICAN AMERICAN 11 mL/min (90-120)
[2018-09-24 05:48] LABS: ALT (SGPT) 396 U/L (10-68); CREATINE KINASE 879 UL (21-232)
[2018-09-24 10:13] LABS: CEA 15.1 ng/mL (0.0-4.7)
[2018-09-25] VITALS (23 sets, daily range): BP systolic 102–150; BP diastolic 47–84
[2018-09-25 04:28] LABS: BASOPHILS 0 % (0-2); EOSINOPHILS 0.2 % (0-7); HEMATOCRIT 24.8 % (42.0-54.0); HEMOGLOBIN 8.7 g/dL (13.5-17.5); IMMATURE GRANULOCYTES 0.7 % (0-5); MCH 29.3 pg (26.0-34.0); MCHC 35.1 g/dL (31.0-37.0); MCV 83.5 fL (80.0-100.0); MEAN PLATELET VOLUME 9.8 fL (7.4-10.4); MONOCYTES 6.5 % (2-11); NEUTROPHILS 83.6 % (40-80); PLATELET COUNT 247 10x3/uL (130-400); RBC 2.97 10x6/uL (4.20-6.10); RDW 15.2 % (11.5-14.5); WBC 14.4 10x3/uL (4.8-10.8)
[2018-09-25 04:38] LABS: PROTIME 16.6 SECONDS (11.6-15.0)
[2018-09-25 04:44] LABS: ALBUMIN 2.2 g/dL (3.4-5.0); BILIRUBIN - TOTAL 5.21 mg/dL (0.2-1.3); CALCIUM 8.3 mg/dL (8.5-10.1); CARBON DIOXIDE 30.2 mmol/L (21.0-32.0); PROTEIN - SERUM 5.6 g/dL (6.4-8.2)
[2018-09-25 04:45] LABS: ANION GAP 9.6 mmol/L (8-16); CREATININE - SERUM 3.8 mg/dL (0.6-1.3); MAGNESIUM - SERUM 2.4 mg/dL (1.8-2.4); PHOSPHOROUS 4.2 mg/dL (2.5-4.9); POTASSIUM - SERUM 2.8 mmol/L (3.5-5.1)
[2018-09-25 04:46] LABS: INR 1.39 (0.85-1.17)
[2018-09-25 16:19] LABS: CARBON DIOXIDE 27.2 mmol/L (21.0-32.0); POTASSIUM - SERUM 3.2 mmol/L (3.5-5.1)
[2018-09-25 22:57] LABS: HEMATOCRIT 25.8 % (42.0-54.0); HEMOGLOBIN 8.9 g/dL (13.5-17.5)
[2018-09-26] VITALS (25 sets, daily range): BP systolic 106–156; BP diastolic 53–84
[2018-09-26 05:50] LABS: BASOPHILS 0.1 % (0-2); EOSINOPHILS 1.1 % (0-7); HEMATOCRIT 30.5 % (42.0-54.0); HEMOGLOBIN 10.6 g/dL (13.5-17.5); IMMATURE GRANULOCYTES 1.3 % (0-5); LYMPHOCYTES 9.9 % (15-50); MCH 30.5 pg (26.0-34.0); MCHC 34.8 g/dL (31.0-37.0); MEAN PLATELET VOLUME 10.2 fL (7.4-10.4); MONOCYTES 9.1 % (2-11); NEUTROPHILS 78.5 % (40-80); PLATELET COUNT 223 10x3/uL (130-400); RBC 3.47 10x6/uL (4.20-6.10); RDW 15.4 % (11.5-14.5); WBC 10.8 10x3/uL (4.8-10.8)
[2018-09-26 06:09] LABS: MCV 87.9 fL (80.0-100.0)
[2018-09-26 06:20] LABS: ANION GAP 12.3 mmol/L (8-16); CARBON DIOXIDE 29.2 mmol/L (21.0-32.0); MAGNESIUM - SERUM 2.4 mg/dL (1.8-2.4); POTASSIUM - SERUM 3.5 mmol/L (3.5-5.1); VANCOMYCIN - RANDOM 7.1 ug/mL (10.0-20.0)
[2018-09-26 06:31] LABS: CREATININE - SERUM 1.9 mg/dL (0.6-1.3); PHOSPHOROUS 2.7 mg/dL (2.5-4.9)
[2018-09-26 08:30] LABS: ALBUMIN 2.3 g/dL (3.4-5.0); BILIRUBIN - DIRECT 4.66 mg/dL (0.00-0.30); BILIRUBIN - INDIRECT 1.3 mg/dL (0.00-1.00); BILIRUBIN - TOTAL 5.96 mg/dL (0.2-1.3); PROTEIN - SERUM 5.4 g/dL (6.4-8.2)
[2018-09-26 10:58] LABS: HEMATOCRIT 30.7 % (42.0-54.0); HEMOGLOBIN 10.6 g/dL (13.5-17.5)
[2018-09-26 11:24] LABS: APTT 31.1 SECONDS (22.8-39.4); PROTIME 13.6 SECONDS (11.6-15.0)
[2018-09-26 11:31] LABS: INR 1.08 (0.85-1.17)
[2018-09-26 16:40] LABS: HEMATOCRIT 31.1 % (42.0-54.0); HEMOGLOBIN 10.6 g/dL (13.5-17.5)
[2018-09-26 18:10] LABS: ANION GAP 10.6 mmol/L (8-16); CALCIUM 8.7 mg/dL (8.5-10.1); CARBON DIOXIDE 30.7 mmol/L (21.0-32.0); CREATININE - SERUM 1.6 mg/dL (0.6-1.3); POTASSIUM - SERUM 3.3 mmol/L (3.5-5.1)
[2018-09-26 19:09] LABS: SPE - A/G RATIO 1.2 (0.7-1.7); SPE - ALPHA-1 GLOBULIN 0.3 g/dL (0.0-0.4); SPE - ALPHA-2 GLOBULIN 0.8 g/dL (0.4-1.0); SPE - BETA GLOBULIN 0.8 g/dL (0.7-1.3); SPE - GAMMA GLOBULIN 0.6 g/dL (0.4-1.8); SPE - M-SPIKE Not Observed g/dL (Not Observed); SPE - TOTAL PROTEIN 5.5 g/dL (6.0-8.5)
[2018-09-26 23:49] LABS: HEMATOCRIT 31.2 % (42.0-54.0); HEMOGLOBIN 10.6 g/dL (13.5-17.5)
[2018-09-27] VITALS (24 sets, daily range): BP systolic 133–154; BP diastolic 60–84
[2018-09-27 06:01] LABS: BASOPHILS 0.3 % (0-2); EOSINOPHILS 2.6 % (0-7); HEMATOCRIT 30.6 % (42.0-54.0); HEMOGLOBIN 10.4 g/dL (13.5-17.5); IMMATURE GRANULOCYTES 2.1 % (0-5); LYMPHOCYTES 12.3 % (15-50); MCH 30.3 pg (26.0-34.0); MCV 89.2 fL (80.0-100.0); MEAN PLATELET VOLUME 10.1 fL (7.4-10.4); MONOCYTES 11.4 % (2-11); NEUTROPHILS 71.3 % (40-80); RBC 3.43 10x6/uL (4.20-6.10); RDW 15.4 % (11.5-14.5); WBC 11.4 10x3/uL (4.8-10.8)
[2018-09-27 06:05] LABS: ALBUMIN 2.2 g/dL (3.4-5.0); ANION GAP 12.2 mmol/L (8-16); CALCIUM 8.8 mg/dL (8.5-10.1); CARBON DIOXIDE 28.5 mmol/L (21.0-32.0); CREATININE - SERUM 1.5 mg/dL (0.6-1.3); MAGNESIUM - SERUM 2.2 mg/dL (1.8-2.4); PHOSPHOROUS 2.3 mg/dL (2.5-4.9); POTASSIUM - SERUM 3.7 mmol/L (3.5-5.1)
[2018-09-27 06:10] LABS: PLATELET COUNT 269 10x3/uL (130-400)
[2018-09-27 06:15] LABS: HEPATITIS C ANTIBODY <0.1 (0.0-0.9)
[2018-09-27 06:58] LABS: BILIRUBIN - TOTAL 7.06 mg/dL (0.2-1.3); PROTEIN - SERUM 6.2 g/dL (6.4-8.2); VANCOMYCIN - RANDOM 9.7 ug/mL (10.0-20.0)
[2018-09-27 16:13] LABS: UPE RAND - ALBUMIN 47.8 % (()); UPE RAND - ALPHA 1 GLOBULIN 7.4 % (()); UPE RAND - ALPHA 2 GLOBULIN 17.4 % (()); UPE RAND - BETA GLOBULIN 17.5 % (())
[2018-09-28] VITALS (23 sets, daily range): BP systolic 123–149; BP diastolic 64–90
[2018-09-28 05:41] LABS: BASOPHILS 0.4 % (0-2); EOSINOPHILS 4.6 % (0-7); HEMATOCRIT 31.3 % (42.0-54.0); HEMOGLOBIN 10.6 g/dL (13.5-17.5); LYMPHOCYTES 15.7 % (15-50); MCH 30.3 pg (26.0-34.0); MCHC 33.9 g/dL (31.0-37.0); MCV 89.4 fL (80.0-100.0); MEAN PLATELET VOLUME 9.8 fL (7.4-10.4); NEUTROPHILS 66.3 % (40-80); PLATELET COUNT 289 10x3/uL (130-400); RDW 15.3 % (11.5-14.5); WBC 10.1 10x3/uL (4.8-10.8)
[2018-09-28 06:00] LABS: ANION GAP 14.1 mmol/L (8-16); BILIRUBIN - TOTAL 7.02 mg/dL (0.2-1.3); CALCIUM 8.4 mg/dL (8.5-10.1); CARBON DIOXIDE 28.7 mmol/L (21.0-32.0); CREATININE - SERUM 1.4 mg/dL (0.6-1.3); MAGNESIUM - SERUM 2.1 mg/dL (1.8-2.4); POTASSIUM - SERUM 3.8 mmol/L (3.5-5.1); PROTEIN - SERUM 5.3 g/dL (6.4-8.2); VANCOMYCIN - RANDOM 7.7 ug/mL (10.0-20.0)
[2018-09-28 06:08] LABS: PHOSPHOROUS 3.1 mg/dL (2.5-4.9)
[2018-09-29] VITALS (21 sets, daily range): BP systolic 112–152; BP diastolic 57–86
[2018-09-29 05:51] LABS: ALBUMIN 1.9 g/dL (3.4-5.0); ANION GAP 9.9 mmol/L (8-16); BILIRUBIN - TOTAL 7.1 mg/dL (0.2-1.3); CALCIUM 8.2 mg/dL (8.5-10.1); CARBON DIOXIDE 27.4 mmol/L (21.0-32.0); CREATININE - SERUM 1.2 mg/dL (0.6-1.3); POTASSIUM - SERUM 3.3 mmol/L (3.5-5.1); PROTEIN - SERUM 5.6 g/dL (6.4-8.2); VANCOMYCIN - RANDOM 17.8 ug/mL (10.0-20.0)
[2018-09-29 05:55] LABS: HEMATOCRIT 30.2 % (42.0-54.0); HEMOGLOBIN 10.3 g/dL (13.5-17.5); LYMPHOCYTES 18.6 % (15-50); MCHC 34.1 g/dL (31.0-37.0); MEAN PLATELET VOLUME 9.2 fL (7.4-10.4); NEUTROPHILS 69.4 % (40-80); PLATELET COUNT 248 10x3/uL (130-400); RBC 3.43 10x6/uL (4.20-6.10); RDW 15.5 % (11.5-14.5); WBC 10.8 10x3/uL (4.8-10.8)
[2018-09-30] VITALS (28 sets, daily range): BP systolic 102–156; BP diastolic 55–112
[2018-09-30 06:20] LABS: BASOPHILS 0.2 % (0-2); HEMATOCRIT 29.8 % (42.0-54.0); HEMOGLOBIN 10.1 g/dL (13.5-17.5); IMMATURE GRANULOCYTES 1.4 % (0-5); LYMPHOCYTES 13.9 % (15-50); MCHC 33.9 g/dL (31.0-37.0); MCV 88.4 fL (80.0-100.0); MEAN PLATELET VOLUME 9.5 fL (7.4-10.4); MONOCYTES 7.4 % (2-11); NEUTROPHILS 74.1 % (40-80); PLATELET COUNT 291 10x3/uL (130-400); RBC 3.37 10x6/uL (4.20-6.10); RDW 15.2 % (11.5-14.5); WBC 9.8 10x3/uL (4.8-10.8)
[2018-09-30 07:12] LABS: INR 1.73 (0.85-1.17); PROTIME 19.7 SECONDS (11.6-15.0)
[2018-09-30 07:16] LABS: ALBUMIN 1.8 g/dL (3.4-5.0); ANION GAP 12.8 mmol/L (8-16); BILIRUBIN - DIRECT 5.19 mg/dL (0.00-0.30); BILIRUBIN - INDIRECT 0.88 mg/dL (0.00-1.00); BILIRUBIN - TOTAL 6.07 mg/dL (0.2-1.3); CALCIUM 8.2 mg/dL (8.5-10.1); CARBON DIOXIDE 25.7 mmol/L (21.0-32.0); CREATININE - SERUM 1.2 mg/dL (0.6-1.3); PHOSPHOROUS 3.1 mg/dL (2.5-4.9); POTASSIUM - SERUM 3.5 mmol/L (3.5-5.1); PROTEIN - SERUM 5.4 g/dL (6.4-8.2); VANCOMYCIN - RANDOM 24.1 ug/mL (10.0-20.0)
[2018-10-01] VITALS (10 sets, daily range): BP systolic 139–164; BP diastolic 62–79
[2018-10-01 06:14] LABS: BASOPHILS 0.4 % (0-2); HEMATOCRIT 30.8 % (42.0-54.0); HEMOGLOBIN 10.4 g/dL (13.5-17.5); LYMPHOCYTES 8.1 % (15-50); MCHC 33.8 g/dL (31.0-37.0); MCV 88.8 fL (80.0-100.0); MEAN PLATELET VOLUME 9.9 fL (7.4-10.4); MONOCYTES 6.9 % (2-11); NEUTROPHILS 81.6 % (40-80); RBC 3.47 10x6/uL (4.20-6.10); RDW 15.3 % (11.5-14.5); WBC 11.5 10x3/uL (4.8-10.8)
[2018-10-01 06:19] LABS: PLATELET COUNT 388 10x3/uL (130-400)
[2018-10-01 06:46] LABS: ANION GAP 12.2 mmol/L (8-16); CALCIUM 8.1 mg/dL (8.5-10.1); CARBON DIOXIDE 24.4 mmol/L (21.0-32.0); CREATININE - SERUM 1.2 mg/dL (0.6-1.3); PHOSPHOROUS 2.8 mg/dL (2.5-4.9); POTASSIUM - SERUM 3.6 mmol/L (3.5-5.1); VANCOMYCIN - RANDOM 18.3 ug/mL (10.0-20.0)
== END 2018-10-01 15:08 | disposition home health service (06) | DRG 444 ==
LOC: D.MS 14:20 → D.CVICU 14:24
PROVIDERS: Family Medicine; General Practice; Internal Medicine Gastroenterology; Internal Medicine Medical Oncology; Internal Medicine Nephrology; Radiology Diagnostic Radiology
PROC: 0F9930Z Drainage of Common Bile Duct with Drainage Device, Percutaneous Approach (ICD-10-PCS; 2018-09-24)
PROC: 0F793ZZ Dilation of Common Bile Duct, Percutaneous Approach (ICD-10-PCS; 2018-09-24)
PROC: 0DB98ZX Excision of Duodenum, Via Natural or Artificial Opening Endoscopic, Diagnostic (ICD-10-PCS; 2018-09-24)
PROC: 0DB58ZX Excision of Esophagus, Via Natural or Artificial Opening Endoscopic, Diagnostic (ICD-10-PCS; 2018-09-24)
PROC: 0DC68ZZ Extirpation of Matter from Stomach, Via Natural or Artificial Opening Endoscopic (ICD-10-PCS; 2018-09-24)
PROC: 0D9670Z Drainage of Stomach with Drainage Device, Via Natural or Artificial Opening (ICD-10-PCS; 2018-09-24)
PROC: BF101ZZ Fluoroscopy of Bile Ducts using Low Osmolar Contrast (ICD-10-PCS; 2018-09-24)
PROC: 05HM33Z Insertion of Infusion Device into Right Internal Jugular Vein, Percutaneous Approach (ICD-10-PCS; principal; 2018-09-24 11:22)
PROC: 0FB13ZX Excision of Right Lobe Liver, Percutaneous Approach, Diagnostic (ICD-10-PCS; 2018-09-26)
PROC: BF101ZZ Fluoroscopy of Bile Ducts using Low Osmolar Contrast (ICD-10-PCS; 2018-09-28)
PROC: 0F793DZ Dilation of Common Bile Duct with Intraluminal Device, Percutaneous Approach (ICD-10-PCS; 2018-09-30)
PROC: 0F2BX0Z Change Drainage Device in Hepatobiliary Duct, External Approach (ICD-10-PCS; 2018-09-30)
DX: K83.1 Obstruction of bile duct (principal); J96.00 Acute respiratory failure, unspecified whether with hypoxia or hypercapnia; N17.0 Acute kidney failure with tubular necrosis; C17.0 Malignant neoplasm of duodenum; C78.7 Secondary malignant neoplasm of liver and intrahepatic bile duct; E87.0 Hyperosmolality and hypernatremia; D68.9 Coagulation defect, unspecified; J90 Pleural effusion, not elsewhere classified; E46 Unspecified protein-calorie malnutrition; K76.9 Liver disease, unspecified; K72.90 Hepatic failure, unspecified without coma; E87.6 Hypokalemia; J44.9 Chronic obstructive pulmonary disease, unspecified; E83.39 Other disorders of phosphorus metabolism; R53.81 Other malaise